=== PATIENT | female | born 1955 | race Hispanic/Latino ===

== ENCOUNTER → 2020-01-08 10:32 | Outpatient (CLI) | payer OTHER, BC, SELFPAY ==
[2020-01-10 06:35] LABS: COVID19 Sendout Not Detected (Not Detect)
== END ==
PROVIDERS: Visit Provider Physician Assistant
DX: Z01.812 Encounter for preprocedural laboratory examination (principal)
CPT/HCPCS: 87635

== ENCOUNTER 2020-01-11 08:33 | Day surgery (SDC) | payer OTHER, BC, SELFPAY ==
[2020-01-11] VITALS (10 sets, daily range): BP systolic 101–145; BP diastolic 61–81; PULSE 65–73; RESP 10–16; TEMP 35.7–36.8; O2SAT 93–100; BMI 26.9
--- NOTE | 2020-01-11 09:42 | PM.HP.1 ---
History of Present Illness History of Present Illness Date Patient Seen: 01/11/20 Time Patient Seen: 09:42 Chief complaint: SDC Narrative: This is a 64-year-old woman with history of colonoscopy 10 years ago which was normal. She is here for follow-up screening colonoscopy. She denies any symptoms of constipation, diarrhea, unexplained weight loss, unexplained abdominal pain, blood in the stool, or melena. She has hypertension. She denies any other major medical issues. ROS: Denies nausea, denies constipation, denies diarrhea. Thirteen system review is otherwise negative other than as mentioned below and in HPI. PE: GENERAL: Well groomed and cooperative. Appears stated age. Answers questions promptly and appropriately. Vital signs noted. HENT: Normocephalic, atraumatic. Hearing intact. EYES: Conjunctiva pink, sclera white, no periorbital swelling. CARDIOVASCULAR: Regular rate. No pedal edema. RESPIRATORY: Non-tachypneic, breathing comfortably on room air. GASTROINTESTINAL: Abdomen soft and non-distended GENITALURINARY: No flank tenderness. MUSCULOSKELETAL: Equal tone and mass bilaterally. SKIN: Warm, dry, soft, appropriate color for ethnicity. No other lesions, rashes, or wounds. NEURO: Alert and Oriented X 3. No gross sensory deficits, or cognitive issues. PSYCH: Appropriate affect and mood. Patient History Family & Social History Social History: household members spouse Tobacco & Substance use: Smoking Status Never smoker alcohol intake frequency holiday/special occasion Substance Use Type does not use Meds Home Medications and Allergies Allergies Allergy/AdvReac Type Severity Reaction Status Date / Time walnut Allergy Intermediate ITCHING Verified 01/11/20 09:15 Exam Vital Signs (past 8 hours): - 01/11/20 09:17 Temperature 96.3 F L Pulse Rate 70 Respiratory Rate 16 Blood Pressure 145/81 H Pulse Oximetry 100 Oxygen Delivery Method Room Air Oxygen Flow Rate 0 Assessment & Plan Assessment and plan (1) Hypertension: Status: Acute (2) At average risk for colon cancer: Status: Acute Assessment & Plan narrative: Risks and benefits of screening colonoscopy and possible polypectomy were discussed with the patient including risk of bleeding, perforation, need for additional procedures, risks of anesthesia. The patient desires to proceed with the colonoscopy procedure. COVID-19 COVID-19 status: Negative Result date/Date tested (Pos, Neg/Pending): 01/08/20 Time Spent With Patient Time with patient: 15-24 minutes Quality VTE Deep Vein Thrombosis/Pulmonary Embolism Present on Admission: No
--- NOTE | 2020-01-11 09:49 | PM.OP.ENDO ---
Operative Date/Time/Diagnoses Date of procedure: 01/11/20 Time of procedure: 10:14 Pre-op diagnosis: average risk for colon cancer Post-op diagnosis: other (normal colon) Procedure & Clinicians Study performed: Screening colonoscopy Conscious Sedation performed by endoscopist Same procedure as scheduled: Yes Indications: Average risk for colon cancer, 10 years since last colonoscopy Surgeon: Siena Salvador Procedure Notes SCOAP/Timeout: Performed Procedure in detail: The patient was brought to the room and placed in left lateral decubitus position with all bony prominences padded. A time-out was performed and then the patient was given procedural sedation starting with 2 mg of Versed and [100] mcg of fentanyl. A total of 4 mg of Versed and 200 micro g of fentanyl were given for the entire procedure. Vitals were monitored throughout the procedure and remained stable. Once adequately sedated, the procedure was begun. A rectal exam was performed revealing [no abnormalities]. The colonoscope was then introduced to the rectum and advanced to the cecum in the usual fashion. []The cecum was identified by the appendiceal orifice, the mucosal tri-fold, and the ileocecal valve. The scope was then retracted while rotating side to side and examining each mucosal fold. [] At the conclusion of the procedure retroflexion was performed and [small grade 1-2 internal hemorrhoids without stigmata of bleeding were seen]. The scope was then withdrawn from the rectum the procedure was concluded. The patient tolerated the procedure well and was transferred to the PACU in stable condition. Scope withdrawal time: 14 Sedation minutes: 24 Specimen(s): none sent Complications: none Impression: Normal colon Post-procedure Recommendations: Colonscopy in 10 years Follow up: as needed Disposition: PACU
[2020-01-11] MEDS: MIDAZOLAM 5 MG/5 ML VIAL IV (10:03)
[2020-01-11] MEDS: fentaNYL 250 MCG/5 ML INJ IV (10:03)
== END 2020-01-11 11:45 | disposition home or self-care (01) ==
PROVIDERS: PCP Physician Assistant Medical; Referring Provider Surgery; Visit Provider Surgery
PROC: 0DJD8ZZ Inspection of Lower Intestinal Tract, Via Natural or Artificial Opening Endoscopic (ICD-10-PCS; CPT 45378; principal; 2020-01-11 10:00)
DX: K64.0 First degree hemorrhoids (principal); Z12.11 Encounter for screening for malignant neoplasm of colon; I10 Essential (primary) hypertension
CPT/HCPCS: 45378; 99152; J2250; J3010

== ENCOUNTER 2022-09-14 12:01 | Emergency (ER) | payer BC, MEDICARE, OTHER, SELFPAY ==
[2022-09-14] VITALS (12 sets, daily range): BP systolic 124–183; BP diastolic 64–120; PULSE 68–81; RESP 16–22; TEMP 36.4; O2SAT 96–99; BMI 25.8
[2022-09-14 12:26] LABS: Appearance Urine UA CLOUDY; Bilirubin Urine UA NEGATIVE (NEGATIVE); Color Urine UA YELLOW; Glucose Urine UA NEGATIVE (Negative); Ketones Urine UA NEGATIVE (NEGATIVE); Leukocyte Esterase Urine UA 1+ (NEGATIVE); Nitrite Urine UA NEGATIVE (Negative); Occult Blood Urine UA 3+ (Negative); Protein Urine UA TRACE (Negative); Specific Gravity Urine UA 1.025 (1.000-1.035); Urobilinogen Urine UA 0.2 E.U./dL (0.2)
[2022-09-14] MEDS: KETOROLAC 30 MG/ML VIAL 15 MG IV (12:33)
[2022-09-14 12:38] LABS: Add Manual Diff / Slide Review NO; Basophils Absolute Auto 100 /uL (0-100); Eosinophils Absolute Auto 200 /uL (0-450); Eosinophils Percent Auto 4.5 % (2-4); Hematocrit 42.4 % (36-46); Hemoglobin 14.5 g/dL (12.0-16.0); Lymphocytes Absolute Auto 2400 /uL (1100-4500); Lymphocytes Percent Auto 44.1 % (25-40); Mean Corpuscular HGB Conc 34.1 % (30-36); Mean Corpuscular Hemoglobin 29.2 PG (26-34); Mean Corpuscular Volume 85.5 fL (80-100); Monocytes Absolute Auto 300 /uL (0-900); Monocytes Percent Auto 4.9 % (3-14); Neutrophils Absolute Auto 2500 /uL (1500-7000); Neutrophils Percent Auto 45.5 % (50-75); Platelet Count 211 X10^3/uL (150-400); Red Blood Cell Count 4.96 X10^6/uL (4.0-5.2); Red Cell Distribution Width 13.6 % (11.6-14.8); White Blood Cell Count 5.5 X10^3/uL (4.5-11.0)
[2022-09-14 12:50] LABS: Calcium Oxalate Crystals Urine Moderate; RBC Urine 5-10/HPF (0-5/HPF); Squamous Epithelial Cell Urine 10-30 /HPF (0-5/HPF); Transitional Epi Cells Urine 1-5/HPF (0-5/HPF); WBC Urine 5-10/HPF (0-5/HPF); pH Urine UA 6.5 (4.5-8.0)
[2022-09-14 12:51] LABS: Amorphous Sediment Urine 1+; Bacteria Urine Many (>30); Culture Indicated Urine Specimen Cultured
[2022-09-14 12:55] LABS: Alanine Aminotransferase 21 IU/L (<35); Albumin 4.1 g/dL (3.5-5.0); Albumin Globulin Ratio 1.1 (1.0-2.8); Alkaline Phosphatase 86 U/L (38-126); Aspartate Aminotransferase 25 IU/L (14-36); BUN Creatinine Ratio 17.9 (6-22); Bilirubin Total 0.6 mg/dL (0.2-1.3); Blood Urea Nitrogen 14 mg/dL (7-17); Calcium 9.1 mg/dL (8.4-10.2); Carbon Dioxide 23 mmol/L (22-32); Chloride 104 mmol/L (98-107); Estimated Glomerular Filt Rate > 60 mL/min (>60); Globulin 3.6 g/dL (1.7-4.1); Glucose 128 mg/dL (80-110); HEMOLYSIS < 15 (0-50); Lipase 151 U/L (23-300); Potassium 4.1 mmol/L (3.4-5.1); Sodium 137 mmol/L (137-145); Total Protein 7.7 g/dL (6.3-8.2)
--- NOTE | 2022-09-14 13:05 | DI.CT.S_ITS ---
PROCEDURE: CT KIDNEY URETER BLADDER (KUB) INDICATIONS: left-sided abdominal flank pain TECHNIQUE: Axial sections were acquired from the lung bases to the pubic symphysis. Coronal and sagittal reformats were performed. For radiation dose reduction, the following was used: automated exposure control, adjustment of mA and/or kV according to patient size. COMPARISON: None. FINDINGS: Image quality: Excellent. Lung bases: Unremarkable. Heart: No significant findings. URINARY: Right Kidney: No stones or hydronephrosis. Right Ureter: No hydroureter. Left Kidney/ureter: No renal stones identified on the left. Mild left hydroureteronephrosis secondary to a tiny punctate stone measuring 1-2 mm in size in the distal left ureter. No significant perinephric or periureteral stranding. Bladder: Normal wall thickness. No stones. ABDOMEN: Liver: Unremarkable. Gallbladder: Unremarkable. Biliary ducts: Unremarkable. Pancreas: Unremarkable. Spleen: Unremarkable. Adrenal Glands: Unremarkable. Stomach and Bowel: Stomach, small bowel loops, and colon are unremarkable. Normal appendix. Peritoneum: No abnormal intraperitoneal fluid. No free air. Ventral Wall: There is a fat-containing umbilical hernia without acute inflammation. Abdominal Nodes: No enlarged retroperitoneal or mesenteric lymph nodes. Vessels: Aorta and inferior vena cava are normal in size. PELVIS: Pelvic Organs: Suspected fibroid uterus. Pelvic Nodes: Unremarkable. Miscellaneous: No inguinal hernias are seen. Bones: Unremarkable. No acute compression fractures IMPRESSION: A nonobstructing 1-2 mm distal left ureteral stone with associated mild hydroureteronephrosis. Normal appendix. Other chronic findings as above. Dictated by: Benny Roberson M.D. on 09/14/2022 at 14:36 Approved by: Benny Roberson M.D. on 09/14/2022 at 14:46
--- NOTE | 2022-09-14 13:08 | ED.FEMALEGU ---
HPI - Female Genitourinary <GRANT Wray - Last Filed: 09/14/22 15:10> General Chief complaint: Urogenital-Female Stated complaint: pain left side body numb Time Seen by Provider: 09/14/22 12:49 Source: patient Mode of arrival: Ambulatory History of Present Illness HPI Narrative: 67-year-old female, never smoker, presents to the emergency department with left-sided flank pain radiating to her left lateral abdomen x1 hour. Patient and were heading to [place], [place] when she experienced a sharp and nauseating pain of her left flank. Patient states that the pain became so severe that her entire body started to feel numb and tingly, along with feeling nauseous. Patient denies any dysuria, urinary frequency or urgency. Related Data Previous Rx's Medication Instructions Recorded nitrofurantoin 100 mg PO Q12H 5 days #10 caps 09/14/22 monohydrate/macrocrystals 100 mg capsule (Macrobid) oxycodone-acetaminophen 5 mg-325 1 tab PO Q4-6H PRN pain #10 tabs 09/14/22 mg tablet (Percocet) tamsulosin 0.4 mg capsule (Flomax) 0.4 mg PO DAILY #7 caps 09/14/22 Allergies Allergy/AdvReac Type Severity Reaction Status Date / Time walnut Allergy Intermediate ITCHING Verified 01/11/20 09:15 Review of Systems <GRANT Wray - Last Filed: 09/14/22 15:10> Review of Systems Narrative: Narrative: See HPI. GENERAL: Denies chills, fatigue, fever, sweats. HEENT: Denies sinus pain, ear pain, sore throat, difficulty swallowing, dizziness. RESPIRATORY: Denies dyspnea, cough, wheezing, sputum. CARDIOVASCULAR: Denies chest pain, palpitations, edema. GASTROINTESTINAL: Denies current nausea, vomiting, diarrhea, constipation. endorses left-sided abdominal pain. : Denies dysuria, frequency, incontinence, hematuria, urinary retention. Endorses left flank pain. MSK: Denies weakness, joint pain, or bony pain. SKIN: Denies rash, skin lesions, or pruritis. NEUROLOGIC: Denies weakness, dizziness, headache, confusion. Endorses numbness and tingling of her entire body when the flank pain was at its worst , but has since resolved. Patient and deny any altered mental status, one-sided body weakness or speech impairment. Patient History <GRANT Wray - Last Filed: 09/14/22 15:10> alcohol intake frequency: holidays/special occasions only Substance Use Type: does not use Exam <Jeff SolaresGRANT mota - Last Filed: 09/14/22 15:10> Narrative Exam Narrative: Exam Narrative: GENERAL: This is a well-nourished, well-developed patient, in no acute distress. HEAD: Atraumatic. Normocephalic. EYES: Pupils equal round and reactive. Extraocular motions intact. No scleral icterus, injection or drainage. ENT: Nose without bleeding, purulent drainage. Throat without erythema, tonsillar hypertrophy or exudate. Uvula midline. Airway patent. TMs and canals clear. No sinus tenderness. NECK: Trachea midline. No JVD or lymphadenopathy. Nontender. CARDIOVASCULAR: Regular rate and rhythm without murmurs, peripheral pulses intact, cap refill <2 sec. RESPIRATORY: Breath sounds equal and clear bilaterally. No wheezes, rales, or rhonchi. No cough. No increased respiratory effort. No accessory muscle use. GASTROINTESTINAL: Abdomen soft, non-tender, nondistended without guarding or rebound. No suprapubic pain. Mild left CVA tenderness. MSK: Moves all extremities. Normal range of motion, no clubbing or edema. Neurovascularly intact. NEURO: A&O x 3. certified dietary manager II-Xi intact bilaterally. SKIN: Warm, dry, no rashes or lesions noted. Initial Vital Signs Initial Vital Signs: Vital Signs Pulse Rate 74 09/14/22 12:11 Blood Pressure 183/87 H 09/14/22 12:11 Pulse Oximetry 98 09/14/22 12:11 Reviewed <Yanet Waggoner DO - Last Filed: 09/17/22 06:56> Initial Vital Signs Initial Vital Signs: Vital Signs Pulse Rate 74 09/14/22 12:11 Blood Pressure 183/87 H 09/14/22 12:11 Pulse Oximetry 98 09/14/22 12:11 Course <GRANT Wray - Last Filed: 09/14/22 15:10> Orders Ordered: Discontinued Medications Ketorolac Tromethamine (Ketorolac 30 Mg/Ml Vial) 15 mg IV NOW ONE Stop: 09/14/22 12:24 Last Admin: 09/14/22 12:33 Dose: 15 mg Documented By: EMEYR Ondansetron HCl (Ondansetron 4 Mg Odt) 4 mg PO NOW PRN PRN Reason: Nausea And Vomiting Ondansetron HCl (Ondansetron 4 Mg/2 Ml Inj) 4 mg IV NOW PRN PRN Reason: Nausea And Vomiting Vital Signs Vital signs: Vital Signs - 8 hr 09/14/22 12:15 09/14/22 12:11 09/14/22 12:11 Temperature 97.6 F Pulse Rate 73 74 Respiratory Rate 22 Blood Pressure 183/87 H 183/87 H Pulse Oximetry 98 98 Oxygen Delivery Method Room Air 09/14/22 12:30 09/14/22 12:30 09/14/22 13:06 Temperature Pulse Rate 81 Respiratory Rate Blood Pressure 149/120 H Pulse Oximetry 96 99 Oxygen Delivery Method 09/14/22 13:07 09/14/22 13:08 09/14/22 13:08 Temperature Pulse Rate 71 70 Respiratory Rate Blood Pressure 144/67 H Pulse Oximetry 99 99 Oxygen Delivery Method 09/14/22 13:18 09/14/22 13:18 09/14/22 13:30 Temperature Pulse Rate 70 Respiratory Rate Blood Pressure 142/70 H 139/75 Pulse Oximetry 98 Oxygen Delivery Method 09/14/22 13:30 09/14/22 13:40 09/14/22 13:40 Temperature Pulse Rate 74 70 Respiratory Rate Blood Pressure 153/79 H Pulse Oximetry 96 98 Oxygen Delivery Method 09/14/22 14:00 09/14/22 14:00 09/14/22 14:30 Temperature Pulse Rate 68 Respiratory Rate 16 Blood Pressure 149/70 H 124/64 Pulse Oximetry 97 Oxygen Delivery Method Room Air 09/14/22 14:30 09/14/22 15:00 09/14/22 15:00 Temperature Pulse Rate 68 76 Respiratory Rate Blood Pressure 139/72 Pulse Oximetry 96 97 Oxygen Delivery Method <Yanet Waggoner DO - Last Filed: 09/17/22 06:56> Orders Ordered: Discontinued Medications Ketorolac Tromethamine (Ketorolac 30 Mg/Ml Vial) 15 mg IV NOW ONE Stop: 09/14/22 12:24 Last Admin: 09/14/22 12:33 Dose: 15 mg Documented By: EMERY Ondansetron HCl (Ondansetron 4 Mg Odt) 4 mg PO NOW PRN PRN Reason: Nausea And Vomiting Ondansetron HCl (Ondansetron 4 Mg/2 Ml Inj) 4 mg IV NOW PRN PRN Reason: Nausea And Vomiting Vital Signs Vital signs: Vital Signs - 8 hr 09/14/22 12:15 09/14/22 12:11 09/14/22 12:11 Temperature 97.6 F Pulse Rate 73 74 Respiratory Rate 22 Blood Pressure 183/87 H 183/87 H Pulse Oximetry 98 98 Oxygen Delivery Method Room Air 09/14/22 12:30 09/14/22 12:30 09/14/22 13:06 Temperature Pulse Rate 81 Respiratory Rate Blood Pressure 149/120 H Pulse Oximetry 96 99 Oxygen Delivery Method 09/14/22 13:07 09/14/22 13:08 09/14/22 13:08 Temperature Pulse Rate 71 70 Respiratory Rate Blood Pressure 144/67 H Pulse Oximetry 99 99 Oxygen Delivery Method 09/14/22 13:18 09/14/22 13:18 09/14/22 13:30 Temperature Pulse Rate 70 Respiratory Rate Blood Pressure 142/70 H 139/75 Pulse Oximetry 98 Oxygen Delivery Method 09/14/22 13:30 09/14/22 13:40 09/14/22 13:40 Temperature Pulse Rate 74 70 Respiratory Rate Blood Pressure 153/79 H Pulse Oximetry 96 98 Oxygen Delivery Method 09/14/22 14:00 09/14/22 14:00 09/14/22 14:30 Temperature Pulse Rate 68 Respiratory Rate 16 Blood Pressure 149/70 H 124/64 Pulse Oximetry 97 Oxygen Delivery Method Room Air 09/14/22 14:30 09/14/22 15:00 09/14/22 15:00 Temperature Pulse Rate 68 76 Respiratory Rate Blood Pressure 139/72 Pulse Oximetry 96 97 Oxygen Delivery Method MDM - Female Genitourinary <GRANT Wray - Last Filed: 09/14/22 15:10> Differential Diagnosis Differential diagnosis: Likely urinary tract infection and other ( nephrolithiasis, bowel obstruction) Lab Data 09/14/22 12:20 09/14/22 12:20 Labs: Lab Results 09/14/22 09/14/22 09/14/22 Range/Units 12:10 12:20 12:20 WBC 5.5 (4.5-11.0) X10^3/uL RBC 4.96 (4.0-5.2) X10^6/uL Hgb 14.5 (12.0-16.0) g/dL Hct 42.4 (36-46) % MCV 85.5 (80-100) fL MCH 29.2 (26-34) PG MCHC 34.1 (30-36) % RDW 13.6 (11.6-14.8) % Plt Count 211 (150-400) X10^3/uL Neut % (Auto) 45.5 L (50-75) % Lymph % (Auto) 44.1 H (25-40) % [place] % (Auto) 4.9 (3-14) % Eos % (Auto) 4.5 H (2-4) % Baso % (Auto) 1.0 (0-2) % Neut # (Auto) 2500 (9756-8275) /uL Lymph # (Auto) 2400 (0484-7509) /uL [place] # (Auto) 300 (0-900) /uL Eos # (Auto) 200 (0-450) /uL Baso # (Auto) 100 (0-100) /uL Sodium 137 (137-145) mmol/L Potassium 4.1 (3.4-5.1) mmol/L Chloride 104 (98-107) mmol/L Carbon Dioxide 23 (22-32) mmol/L BUN 14 (7-17) mg/dL Creatinine 0.78 (0.52-1.04) mg/dL Estimated GFR > 60 (>60) mL/min BUN/Creatinine Ratio 17.9 (6-22) Glucose 128 H (80-110) mg/dL Calcium 9.1 (8.4-10.2) mg/dL Total Bilirubin 0.6 (0.2-1.3) mg/dL AST 25 (14-36) IU/L ALT 21 (<35) IU/L Alkaline Phosphatase 86 (38-126) U/L Total Protein 7.7 (6.3-8.2) g/dL Albumin 4.1 (3.5-5.0) g/dL Globulin 3.6 (1.7-4.1) g/dL Albumin/Globulin Ratio 1.1 (1.0-2.8) Lipase 151 (23-300) U/L Urine Color Yellow Urine Appearance Cloudy Urine pH 6.5 (4.5-8.0) Ur Specific [place] 1.025 (1.000-1.035) Urine Protein Trace H (Negative) Urine Glucose (UA) Negative (Negative) g/dL Urine Ketones Negative (NEGATIVE) Urine Occult Blood 3+ H (Negative) Urine Nitrate Negative (Negative) Urine Bilirubin Negative (NEGATIVE) Urine Urobilinogen 0.2 (0.2) E.U./dL Ur Leukocyte Esterase 1+ H (NEGATIVE) Urine RBC 5-10/hpf H (0-5/HPF) Urine WBC 5-10/hpf H (0-5/HPF) Ur Squamous Epith Cells 10-30 /hpf H (0-5/HPF) Ur Transition Epith Cell 1-5/hpf (0-5/HPF) Calcium Oxalate Crystal Moderate H Amorphous Sediment 1+ Urine Bacteria Many (>30) H (None) Ur Culture Indicated? Specimen cultured Imaging Data CT scan - abdomen/pelvis: Radiologist's Impression: [address] [address] [address] Scan Report Signed Patient: Jojo Castro MR#: [id number] : 1955 Acct:[id number] Age/Sex: 67 / F Date of Service: 09/14/22 Loc: ED Accession Number: [id number] ?? Procedure: CT kidney ureter bladder (KUB) Ordering Provider: Jeff Edmondson PROCEDURE:? CT KIDNEY URETER BLADDER (KUB) ? INDICATIONS:? left-sided abdominal flank pain ? TECHNIQUE:? Axial sections were acquired from the lung bases to the pubic symphysis.? Coronal and sagittal reformats were performed.? For radiation dose reduction, the following was used: ?automated exposure control, adjustment of mA and/or kV according to patient size.? ? COMPARISON:? None. ? FINDINGS:? Image quality:? Excellent.? ? Lung bases:? Unremarkable.? ? Heart:? No significant findings. ? URINARY: Right Kidney: ? No stones or hydronephrosis.? Right Ureter:? No hydroureter.? ? Left Kidney/ureter:? No renal stones identified on the left.? Mild left hydroureteronephrosis secondary to a tiny punctate stone measuring 1-2 mm in size in the distal left ureter.? No significant perinephric or periureteral stranding.? ? Bladder:? Normal wall thickness. No stones. ? ? ? ABDOMEN: Liver:? Unremarkable.? ? Gallbladder:? Unremarkable.? ? Biliary ducts:? Unremarkable.? ? Pancreas:? Unremarkable.? ? Spleen:? Unremarkable.? ? Adrenal Glands:? Unremarkable.? ? ? Stomach and Bowel:? Stomach, small bowel loops, and colon are unremarkable.? Normal appendix. Peritoneum:? No abnormal intraperitoneal fluid.? No free air.? ? Ventral Wall: ? There is a fat-containing umbilical hernia without acute inflammation. Abdominal Nodes:? No enlarged retroperitoneal or mesenteric lymph nodes.? Vessels:? Aorta and inferior vena cava are normal in size.? ? PELVIS: Pelvic Organs:? Suspected fibroid uterus. Pelvic Nodes: Unremarkable. Miscellaneous: No inguinal hernias are seen. ? ? ? Bones:? Unremarkable.? No acute compression fractures ? IMPRESSION:? ? A nonobstructing 1-2 mm distal left ureteral stone with associated mild hydroureteronephrosis. ? Normal appendix. ? Other chronic findings as above. ? ? ? Dictated by: Benny Roberson M.D. on 09/14/2022 at 14:36 ? ? Approved by: Benny Roberson M.D. on 09/14/2022 at 14:46? MDM Narrative Medical decision making narrative: 67-year-old female that presents to the emergency department with left flank pain. Assessment was inconclusive and I suspect this may be a kidney stone. Pain controlled with a Toradol injection. initial all body numbness and tingling, that occurred when the pain was at its worst, has since fully resolved. Neuro assessment intact without any discrepancies. Point of care urine dip was consistent with a UTI, positive blood and leuks. Labs were non concerning. CT results show a 2 mm nonobstructing kidney stone on the left side. Will treat the UTI with Macrobid. Will treat the kidney stone with Flomax, ibuprofen and Percocet. Instructed patient to follow up with family doctor next week to ensure symptoms are improving. Strict instructions that for any worsening symptoms, to return to the emergency department. Patient and verbalized understanding and were agreeable with course of action. <Yanet Waggoner, DO - Last Filed: 09/17/22 06:56> Lab Data Labs: Lab Results 04/07/0809/14/22 09/14/22 Range/Units 12:10 12:20 12:20 WBC 5.5 (4.5-11.0) X10^3/uL RBC 4.96 (4.0-5.2) X10^6/uL Hgb 14.5 (12.0-16.0) g/dL Hct 42.4 (36-46) % MCV 85.5 (80-100) fL MCH 29.2 (26-34) PG MCHC 34.1 (30-36) % RDW 13.6 (11.6-14.8) % Plt Count 211 (150-400) X10^3/uL Neut % (Auto) 45.5 L (50-75) % Lymph % (Auto) 44.1 H (25-40) % [place] % (Auto) 4.9 (3-14) % Eos % (Auto) 4.5 H (2-4) % Baso % (Auto) 1.0 (0-2) % Neut # (Auto) 2500 (1488-5933) /uL Lymph # (Auto) 2400 (4432-9645) /uL [place] # (Auto) 300 (0-900) /uL Eos # (Auto) 200 (0-450) /uL Baso # (Auto) 100 (0-100) /uL Sodium 137 (137-145) mmol/L Potassium 4.1 (3.4-5.1) mmol/L Chloride 104 (98-107) mmol/L Carbon Dioxide 23 (22-32) mmol/L BUN 14 (7-17) mg/dL Creatinine 0.78 (0.52-1.04) mg/dL Estimated GFR > 60 (>60) mL/min BUN/Creatinine Ratio 17.9 (6-22) Glucose 128 H (80-110) mg/dL Calcium 9.1 (8.4-10.2) mg/dL Total Bilirubin 0.6 (0.2-1.3) mg/dL AST 25 (14-36) IU/L ALT 21 (<35) IU/L Alkaline Phosphatase 86 (38-126) U/L Total Protein 7.7 (6.3-8.2) g/dL Albumin 4.1 (3.5-5.0) g/dL Globulin 3.6 (1.7-4.1) g/dL Albumin/Globulin Ratio 1.1 (1.0-2.8) Lipase 151 (23-300) U/L Urine Color Yellow Urine Appearance Cloudy Urine pH 6.5 (4.5-8.0) Ur Specific [place] 1.025 (1.000-1.035) Urine Protein Trace H (Negative) Urine Glucose (UA) Negative (Negative) g/dL Urine Ketones Negative (NEGATIVE) Urine Occult Blood 3+ H (Negative) Urine Nitrate Negative (Negative) Urine Bilirubin Negative (NEGATIVE) Urine Urobilinogen 0.2 (0.2) E.U./dL Ur Leukocyte Esterase 1+ H (NEGATIVE) Urine RBC 5-10/hpf H (0-5/HPF) Urine WBC 5-10/hpf H (0-5/HPF) Ur Squamous Epith Cells 10-30 /hpf H (0-5/HPF) Ur Transition Epith Cell 1-5/hpf (0-5/HPF) Calcium Oxalate Crystal Moderate H Amorphous Sediment 1+ Urine Bacteria Many (>30) H (None) Ur Culture Indicated? Specimen cultured Discharge Plan Departure Patient Disposition: Home Clinical Impression: Kidney stone on left side, Urinary tract infection Instructions: DI for Kidney Infection, DI for Urinary Tract Infection (UTI) Activity Restrictions/Additional Instructions: *You have been diagnosed with a urinary tract infection and a 2 mm kidney stone. Please make sure you are drinking at least 60 oz of water per day. We will treat the urinary tract infection with Macrobid for 5 days. We will send out a urine sample for culture and contact you with the results only if it requires a change in antibiotics. I am prescribing Flomax to dilate your ureters in order to help you pass the kidney stone more easily. Additionally, I recommend you take ibuprofen 600 mg 3 times a day with food for pain and am prescribing a short course of pain medications in case you need any breakthrough pain meds. Please follow-up with your family doctor next week to ensure symptoms are improving. *What to do: *Please continue to take your regular medications as directed. [ x] New medication prescriptions sent to your pharmacy: [[facility]] [ ] New medication written as a paper prescription [ ] No new medications given *Please follow up with your primary care provider in 2-3 days, call for an appointment. Let them know you were seen in the Emergency Department and that we ask that you be seen in follow up. We will electronically transmit a record of today's note if your PCP is in our system *If you do not have a primary care provider please contact the [facility] Resource line at [phone]. They will ask some questions about your medical history and help get you set up with a doctor in the community. ? Return to ER if you should have any new, worsening or concerning symptoms, such as worsening pain, severe headache, confusion, chest pain, difficulty breathing, fever greater than 101 F, shaking chills, persistent vomiting to the point that you cannot drink fluids, or other new or worsening symptoms. Prescriptions: New tamsulosin [Flomax] 0.4 mg capsule 0.4 mg PO DAILY Qty: 7 0RF nitrofurantoin monohyd/m-cryst [Macrobid] 100 mg capsule 100 mg PO Q12H 5 Days Qty: 10 0RF Rx Instructions: must administer with a meal/food oxycodone-acetaminophen [Percocet] 5-325 mg tablet 1 tab PO Q4-6H PRN (Reason: pain) Qty: 10 0RF Referrals: Beth Chery PA-C [Primary Care Provider] - Stand Alone Forms: Patient Portal/API <Yanet Waggoner DO - Last Filed: 09/17/22 06:56> Cosign ED Attending Angeloature Attestation: I was immediately available in the department for consultation. Documentation has been reviewed.
--- NOTE | 2022-09-14 13:12 | PC.NURSE ---
Pt reports lower left flank pain and nausea that began suddenly while in the car. Pt also reported an episode of some bilateral numbness, tingling and cramping of all extremities when pain was the worst which has now resolved. Pt reporting some urgency and dark urine. Encouraged to use call light for needs.
== END 2022-09-14 15:17 | disposition home or self-care (01) ==
PROVIDERS: Emergency Medicine; Emergency Provider Registered Nurse; PCP Physician Assistant Medical
DX: N20.0 Calculus of kidney (principal); N39.0 Urinary tract infection, site not specified; R11.0 Nausea
CPT/HCPCS: 36415; 74176; 80053; 81001; 83690; 85025; 87086; 96374; 99284; J1885

== ENCOUNTER → 2023-04-10 10:34 | Outpatient (CLI) | payer BC, MEDICARE, OTHER, SELFPAY ==
--- NOTE | 2023-04-10 | DI.NM.S_ITS ---
PROCEDURE: NM BRIA PERF SPECT REST & STR Rest and exercise myocardial perfusion SPECT with gated imaging and ejection fraction RADIOPHARMACEUTICAL: 11.8 mCi Tc-99m sestamibi IV at rest and 24.9 mCi Tc-99m sestamibi IV at peak exercise. A one day-protocol was performed. INDICATIONS: CHEST PAIN TECHNIQUE: Radiopharmaceutical was injected at peak stress test, and also at rest. SPECT images were obtained. SPECT myocardial perfusion images were displayed in short axis, horizontal long axis, and vertical long axis views. Gated images were reviewed using Bi[employer] software. COMPARISON: None. CARDIAC STRESS: A standard David treadmill exercise tolerance test was performed by the patient under the supervision of an attending staff. The patient exercised for 8 minutes and 1 seconds; functional aerobic impairment (CORY) is -4%. Hemodynamic data: There is normal heart rate response to exercise stress. Patient achieved 106% of maximum predicted heart rate at peak exercise. Hypertensive response to exercise (resting BP 142/80mmHg, max BP 220/110mmHg). Symptoms: Patient denied chest pain during exercise. EKG: No diagnostic EKG changes of ischemia; occasional PVCs. FINDINGS: Raw data: There is good myocardial labeling by radiotracer. No significant motion artifacts. Jdla-wh-asjdn ratio is 0.25 (normal is less than 0.38 for sestamibi tracer, and less than 0.50 for thallium tracer). Left ventricle function: Gated images demonstrate normal left ventricle wall thickening. No segmental wall motion abnormality. No transient ischemic dilation; TID is 0.5 (normal less than 1.3). The left ventricle resting end-diastolic volume is 58mL. Left ventricle stress ejection fraction is 98%; normal values are above 45%. Myocardial perfusion: There is normal distribution of activity in the left and right ventricular myocardium. No fixed or reversible perfusion defects. IMPRESSION: Low risk, normal treadmill nuclear stress test from inducible ischemia standpoint. Hypertensive response to exercise. 1) No perfusion evidence of ischemia or infarction. 2) Normal left ventricular size, wall motion, and systolic function (EF post stress over calculated at 98%). 3) No ST changes during exercise or recovery. 4) No angina during the study. 5) Average exercise capacity (CORY -4%). Target heart rate achieved. 6) Hypertensive response to exercise (resting BP 142/80mmHg, max BP 220/110mmHg). 7) No prior nuclear stress test available for comparison. Dictated by: Carlitos Malin MD on 04/11/2023 at 17:18 Approved by: Carlitos Malin MD on 04/11/2023 at 17:21
== END ==
PROVIDERS: PCP Physician Assistant Medical; Referring Provider Physician Assistant Medical; Visit Provider Physician Assistant Medical
DX: R07.9 Chest pain, unspecified (principal)
CPT/HCPCS: 78452; 93017; A9502

== ENCOUNTER → 2024-04-13 07:56 | Outpatient (CLI) | payer BC, MEDICARE, OTHER, SELFPAY ==
--- NOTE | 2024-04-13 07:59 | DI.ECHO.S_ITS ---
[facility] : : [address] : : [place] : : [id number] : : Phone: [phone] Echocardiogram Report + + :Name: NOA BAH Study Date: 04/13/2024 Height: 66 in : :[facility] ReadingLocation: Weight: 170 lb : : Gender: Female BSA: 1.9 m2 : :: 1955 Age: 69 yrs BP: 182/100 mmHg: :Reason For Study: HYPERTENSION : :Ordering Physician: BRIANNE MARTINEZ Performed By: Liyah Nichols : :Referring: SUMA CHO PA-C : + + Interpretation Summary 1. Left ventricular contractility is normal. Estimate ejection fraction is greater than 60% with no segmental wall motion abnormalities. No LVH. Grade 1 diastolic dysfunction. 2. The right ventricular contractility is normal. 3. All cardiac chambers are of normal size. 4. Trace to mild mitral regurgitation. 5. No obvious intracardiac shunts. 6. No obvious intracardiac masses nor thrombi. 7. No hemodynamically significant pericardial effusion. 8. Low right-sided filling pressures. Conclusion: Normal biventricular systolic function with trace to mild mitral regurgitation. Procedure: A two-dimensional transthoracic echocardiogram with color flow and Doppler was performed. The study quality was technically adequate. There is no prior echocardiogram noted for this patient. The patient was in sinus bradycardia with heart rates between 58-71 bpm during the exam. Left Ventricle: The left ventricle is normal in size and wall thickness. The ejection fraction is estimated to be 60-65%. Right Ventricle: The right ventricle is normal in size and function. Atria: The left atrial size is normal. Right atrial size is normal. There is no Doppler evidence for an interatrial shunt. Mitral Valve: The mitral valve is normal in structure and function. There is mild mitral regurgitation. Aortic Valve: The aortic valve is trileaflet. The aortic valve opens well. There is no aortic valve stenosis. There is trace aortic regurgitation. Tricuspid Valve: The tricuspid valve is normal in structure and function. There is mild tricuspid regurgitation. The right ventricular systolic pressure is estimated to be at least 20 mmHg based on an estimated right atrial pressure of 3 mm Hg. Pulmonic Valve: The pulmonic valve leaflets are thin and pliable; valve motion is normal. There is no pulmonic valvular regurgitation. Great Vessels: The aortic root is normal size. The dimensions of the ascending aorta are normal. The IVC is of normal diameter and collapses greater than 50% with a sniff. This suggests a low right atrial pressure of 3 mm Hg. Pericardium/ Pleura There is no pericardial effusion. There is no pleural effusion. MMode/2D Measurements & Calculations LVIDd: 4.5 cm LVOT diam: 2.0 cm LVIDs: 3.1 cm Ao root diam: 3.0 cm FS: 31.7 % asc Aorta Diam: 3.4 cm EPSS: 0.72 cm Ao Arch Diam (Prox Trans): 2.6 cm IVSd: 0.87 cm LVPWd: 0.67 cm LV mackey. diameter/BSA (cm/m^2): 2.4 LV sys. diameter/BSA (cm/m^2): 1.7 LA A2 area: 16.0 cm2 RA long axis: 5.4 cm LA A4 area: 17.5 cm2 RA area: 14.5 cm2 LA length (vol): 5.3 cm RA vol: 33.5 ml LA vol: 44.8 ml RA : 17.9 ml/m2 LA vol index: 24.0 ml/m2 IVC diam: 0.71 cm RVD1 (basal): 3.1 cm RVD2 (mid): 2.7 cm TAPSE: 1.7 cm Doppler Measurements & Calculations Ao V2 max: 114.6 cm/sec LVOT Max Adrianne: 87.0 cm/sec Ao V2 mean: 80.3 cm/sec LV V1 max P.0 mmHg Ao max P.3 mmHg LV V1 VTI: 20.7 cm Ao mean P.9 mmHg DOUGLAS(I,D): 2.5 cm2 Ao V2 VTI: 26.3 cm DOUGLAS(V,D): 2.4 cm2 sev ratio: 0.79 DOUGLAS indexed to BSA (cm^2/m^2): 1.3 MV E max adrianne: 60.0 cm/sec TR max adrianne: 207.6 cm/sec MV A max adrianne: 71.5 cm/sec TR max P.2 mmHg MV E/A: 0.84 PA V2 max: 76.8 cm/sec Med Peak E' Adrianne: 4.4 cm/sec PA V2 mean: 52.0 cm/sec E/E' med: 13.6 PA mean P.2 mmHg Lat Peak E' Adrianne: 5.9 cm/sec PA pr(Accel): 34.5 mmHg E/E' lat: 10.1 E/e' average: 11.9 MV dec time: 0.25 sec SV(LVOT): 64.8 ml Reading Physician:
== END ==
PROVIDERS: PCP Physician Assistant Medical; Referring Provider Internal Medicine; Visit Provider Internal Medicine
DX: I10 Essential (primary) hypertension (principal); I08.1 Rheumatic disorders of both mitral and tricuspid valves
CPT/HCPCS: 93306